=== PATIENT | female | born 1980 | race African-American/Black ===

== ENCOUNTER 2018-05-20 19:20 | Observation (INO) ==
[2018-05-20] MEDS ORDERED: ONDANSETRON 4 MG/2 ML VIAL IV STA (19:39)
[2018-05-20] MEDS ORDERED: ADENOSINE 6 MG/2 ML VIAL IV STA (19:39)
[2018-05-20] MEDS ORDERED: ADENOSINE 6 MG/2 ML VIAL ONE (19:39)
[2018-05-20] MEDS ORDERED: METOPROLOL TARTRATE 5 MG/5 ML VIAL IV STA (19:48)
[2018-05-20 20:11] LABS: Basophils % 0.3 % (0.0-0.8); Eosinophils # 0.1 10*3/uL (0.0-0.87); Eosinophils % 2.1 % (0.00-10.9); Hematocrit 35.1 VOL% (35.7-47.0); Hemoglobin 11.5 GM/DL (12.0-16.0); Immature Granulocytes % 0.1 %; Immature Granulocytes Absolute 0.01 #; Lymphocytes # 2.8 10*3/uL (1.4-4.0); Lymphocytes % 42.2 % (21.3-54.2); Mean Corpuscular HGB Conc 32.8 GM/DL (32-36); Mean Corpuscular Hemoglobin 30 PG (27-34); Mean Corpuscular Volume 91.4 FL (87-102); Mean Platelet Volume 9.8 FL (9.6-12.0); Monocytes # 0.6 10*3/uL (0.11-0.8); Monocytes % 8.3 % (1.7-12.7); Neutrophils # 3.2 10*3/uL (1.4-7.4); Platelet Count 387 T/CUMM (130-400); Red Blood Count 3.84 MC/CUMM (3.8-5.5); Red Cell Distribution Width 13.2 % (9.3-17.3); White Blood Count 6.7 T/CUMM (4-12)
[2018-05-20 20:23] LABS: Partial Thromboplastin Time 28.5 SECS (0-40)
[2018-05-20 20:46] LABS: Alanine Aminotransferase 17 U/L (13-56); Albumin 3.2 G/DL (3.4-5.0); Alkaline Phosphatase 83 U/L (45-117); Aspartate Amino Transferase 11 U/L (0-37); Blood Urea Nitrogen 12 MG/DL (7-18); Calcium 8.2 MG/DL (8.5-10.1); Free T4 (Free Thyroxine) 0.98 NG/DL (0.76-1.46); Glucose 160 MG/DL (74-106); Osmolality,Calculated 281.4 MOS/KG (273-304); Potassium 3.3 MMOL/L (3.5-5.1); Sodium 140 MMOL/L (136-145); Troponin I 0.084 NG/ML (0.00-0.045)
[2018-05-20] MEDS ORDERED: ACETAMINOPHEN 325 MG TABLET PO PRN (21:02)
[2018-05-20] MEDS ORDERED: MAGNESIUM SULF RIDER 2 GM in PREMIX 1 EACH IV PRN (21:02)
[2018-05-20] MEDS ORDERED: MAGNESIUM SULF RIDER 4 GM in PREMIX 1 EACH IV PRN (21:02)
[2018-05-20] MEDS ORDERED: NICOTINE 21 MG/24 HR PATCH TRANSDERM PRN (21:02)
[2018-05-20] MEDS ORDERED: ONDANSETRON 4 MG/2 ML VIAL IV PRN (21:02)
[2018-05-20 21:21] LABS: Risk Ratio 3.22
[2018-05-20 22:11] LABS: Apearance,Urine CLEAR (Clear); Bilirubin,Urine Negative (Negative); Blood, Urine Moderate mg/dL (Negative); Glucose,Urine (UA) Negative (Negative); Ketones,Urine Negative (Negative); Mucus,Urine Occasional /LPF (Occasional); Nitrite,Urine Negative (Negative); Protein,Urine 100 MG/DL; RBC,Urine 16 /HPF (0-4); Squamous Epithelial Cell,Urine Occasional /HPF (0-10); Urine Color Yellow (Yellow); Urine Specific Gravity 1.026 (1.001-1.035); WBC,Urine 2 /HPF (0-6)
[2018-05-20 22:34] LABS: Barbiturates Screen,Urine Negative (Negative); Benzodiazepines Screen,Urine Negative (Negative); Cannabinoid Screen,Urine Positive (Negative); Opiate Screen,Urine Negative (Negative); Phencyclidine Screen,Urine Negative (Negative)
[2018-05-20] MEDS: POTASSIUM CHLORIDE 20 MEQ TABLET PO PRN (23:55)
[2018-05-21] MEDS ORDERED: ENOXAPARIN 40 MG/0.4 ML SYRINGE SUBCUT SCH (08:30)
[2018-05-21] MEDS ORDERED: PANTOPRAZOLE 40 MG TABLET PO SCH (09:00)
[2018-05-21] MEDS ORDERED: ASPIRIN CHEW 81 MG TABLET PO SCH (09:00)
[2018-05-21] MEDS: POTASSIUM CHLORIDE 20 MEQ TABLET PO PRN (09:34)
[2018-05-21] MEDS ORDERED: MAGNESIUM SULF RIDER 2 GM in PREMIX 1 EACH IV ONE (10:44)
[2018-05-21] MEDS ORDERED: POTASSIUM CHLORIDE 20 MEQ TABLET PO SCH (11:00)
[2018-05-21] MEDS ORDERED: METOPROLOL SUCCINATE XL 100 MG TABLET PO SCH (12:30)
[2018-05-21 16:40] VITALS: BP 122/79
== END 2018-05-21 18:40 | disposition home or self-care (01) ==
LOC: N.EDINP 19:20 → N.ED 19:20 → N.TELEN 22:48
PROVIDERS: ADMIT Internal Medicine; ATTEND Internal Medicine